=== PATIENT | female | born 1935 | race Caucasian/White ===

== ENCOUNTER 2017-05-21 09:00 | Inpatient (IN) ==
[2017-05-15 13:57] LABS: Appearance,Urine CLEAR; Bacteria,Urine 0 /hpf (0); Bilirubin,Urine NEG (NEG); Color,Urine STRAW; Glucose,Urine (UA) NEGATIVE (NEG); Leukocyte Esterase,Urine 75 /uL (NEG); Mucus,Urine FEW /hpf (0); Nitrate,Urine NEG (NEG); Protein,Urine NEG (NEG); Specific Gravity,Urine 1.005 (1.000-1.035); Urine Blood NEG mg/dL (<0.03); Urine RBC 2 /hpf (0-1); Urine Squamous Epithelial Cell 3 /hpf (0-4); Urine Transitional Epi Cells < 1 /hpf (0-2); Urine WBC 1 /hpf (0-4); Urobilinogen,Urine NEG (NEG)
[2017-05-15 14:00] LABS: Basophils # (Auto) 0 K/mcL (0.0-0.3); Basophils % (Auto) 0.2 % (0.0-2.0); Eosinophils # (Auto) 0.2 K/mcL (0.0-0.7); Eosinophils % (Auto) 3.3 % (0.0-7.0); Granulocytes % (Auto) 68.1 % (38.0-78.0); Lymphocytes # (Auto) 1.1 K/mcL (1.5-4.8); Lymphocytes % (Auto) 16.8 % (15.5-49.0); Mean Cell Volume 77.2 fL (80.0-100.0); Mean Corpuscular HGB Conc 32.4 g/dL (31.0-36.0); Monocytes # (Auto) 0.8 K/mcL (0.1-0.9); Monocytes % (Auto) 11.6 % (1.0-12.0); Platelet Count 220 K/mcL (140-440); RBC 4.34 M/mcL (4.00-5.20); Red Cell Distribution Width 16.5 % (11.5-14.5)
[2017-05-15 14:12] LABS: Blood Urea Nitrogen 14 mg/dl (8-23)
[2017-05-21] MEDS ORDERED: PREGABALIN 75 MG CAPSULE PO SCH (11:30)
[2017-05-21] MEDS ORDERED: ACETAMINOPHEN 500 MG TABLET PO SCH (11:30)
[2017-05-21] MEDS ORDERED: ceFAZolin 1 GM VIAL IV SCH (11:30)
[2017-05-21] MEDS ORDERED: oxyCODONE 10 MG TAB.ER.12H PO SCH (11:30)
[2017-05-21] MEDS ORDERED: KETOROLAC 30 MG, ROPIVACAINE HCL/PF 49.5 ML, EPINEPHrine 0.5 MG, 0.9 % SODIUM CHLORIDE ... IJ ONE (12:24)
[2017-05-21] MEDS ORDERED: LIDOCAINE HCL/PF 100 MG/5 ML SYRINGE IV ONE (12:34)
[2017-05-21] MEDS ORDERED: PROPOFOL 200 MG/20 ML VIAL IV ONE (12:34)
[2017-05-21] MEDS ORDERED: MIDAZOLAM 2 MG/2 ML VIAL ONE (12:34)
[2017-05-21] MEDS ORDERED: VERAPAMIL 2.5 MG/ML VIAL IV ONE (12:34)
[2017-05-21] MEDS ORDERED: KETAMINE 10 MG/ML ML ONE (12:34)
[2017-05-21] MEDS ORDERED: METOPROLOL TARTRATE 5 MG/5 ML VIAL IV ONE (12:34)
[2017-05-21] MEDS ORDERED: GLYCOPYRROLATE 0.2 MG/ML VIAL IV ONE (12:34)
[2017-05-21] MEDS ORDERED: ONDANSETRON 4 MG/2 ML VIAL ONE (12:34)
[2017-05-21] MEDS ORDERED: PHENYLEPHRINE 10 MG/ML VIAL ONE (12:34)
[2017-05-21] MEDS ORDERED: ONDANSETRON 4 MG/2 ML VIAL IV PRN ×2 (13:25→14:09)
[2017-05-21] MEDS ORDERED: BENZOCAINE/MENTHOL 1 LOZENGE PO PRN ×2 (13:25→14:09)
[2017-05-21] MEDS ORDERED: MEPERIDINE 25 MG/ML SYRINGE IV PRN (13:25)
[2017-05-21] MEDS ORDERED: METOPROLOL TARTRATE 5 MG/5 ML VIAL IV PRN (13:25)
[2017-05-21] MEDS ORDERED: METHOCARBAMOL 1,000 MG/10 ML VIAL IV PRN (13:25)
[2017-05-21] MEDS ORDERED: IPRATROPIUM/ALBUTEROL 3 ML AMPUL.NEB NEB PRN (13:25)
[2017-05-21] MEDS ORDERED: GENTAMICIN SULFATE 800 MG/20 ML VIAL IR ONE (13:29)
[2017-05-21] MEDS ORDERED: ACETAMINOPHEN 1,000 MG/100 ML BOTTLE IV SCH ×2 (13:30→18:00)
[2017-05-21] MEDS ORDERED: LACTATED RINGERS 1,000 ML IV SCH (13:30)
[2017-05-21] MEDS ORDERED: HYDROmorphone 2 MG/ML SYRINGE IV PRN (14:09)
[2017-05-21] MEDS ORDERED: POLYETHYLENE GLYCOL 3350 17 GM PACKET PO PRN (14:09)
[2017-05-21] MEDS ORDERED: TRANEXAMIC ACID 1,000 MG/10 ML VIAL IV SCH (14:09)
[2017-05-21] MEDS ORDERED: MAGNESIUM HYDROXIDE 30 ML ORAL.SUSP PO PRN (14:09)
[2017-05-21] MEDS ORDERED: BISACODYL 10 MG SUPP.RECT PR PRN (14:09)
[2017-05-21] MEDS ORDERED: ACETAMINOPHEN 325 MG TABLET PO PRN (14:09)
[2017-05-21] MEDS ORDERED: FLEETS ADULT ENEMA PR PRN (14:09)
[2017-05-21] MEDS ORDERED: OLOPATADINE 0.1% OPHTH DROPS 5ML BOTTLE OU PRN (14:18)
--- NOTE | 2017-05-21 14:20 | Brief Operative Note ---
Date of procedure: 05/21/17 Pre-op diagnosis: left knee djd Post-op diagnosis: same Procedure: left tka Grafts/Implants: Yes Anesthesia: GETA Complications: none Complications Description: 05/21/17 14:20 none Surgeon: Ramón Iverson Chief Psychologist: Luis M Goodwin Estimated blood loss (cc): 20 Tourniquet Time (Minutes): 45 Specimens Removed/Pathology: none sent Condition: stable Disposition: PACU
[2017-05-21] MEDS ORDERED: POLYVINYL ALCOHOL OPHTH DROPS 15ML BOTTLE OU PRN (14:38)
[2017-05-21] MEDS: fentaNYL 100 MCG/2 ML VIAL IV PRN ×3 (14:40→15:16)
--- NOTE | 2017-05-21 15:35 | Operative Note ---
DATE OF OPERATION: 05/21/2017 PREOPERATIVE DIAGNOSIS: Left knee degenerative arthritis, severe with valgus malalignment. POSTOPERATIVE DIAGNOSIS: Left knee degenerative arthritis, severe with valgus malalignment. PROCEDURE: Left total knee arthroplasty with a cemented total knee, cruciate retained design from [employer]. SURGEON: Ramón Iverson MD SPRINKLER HELPER: Luis M Goodwin PA-C ANESTHESIA: General LMA anesthesia. COMPLICATIONS: None. TOTAL TOURNIQUET TIME: Approximately 45 minutes. DESCRIPTION OF PROCEDURE: The patient was brought to the operating room and put to sleep with general LMA anesthesia. Once the timeout had been performed, we confirmed the operative site, and tranexamic acid had been given. The left leg was sterilely prepped and draped in the usual sterile fashion. Once we did this, we then made a midline incision, a mid vastus approach performed. Severe arthritis with valgus malalignment and a flexion contracture of about 9 degrees was noted with the robot. Two pins above and below the knee were placed, 30 pin spots on the femur and tibia were registered, two pins, one on the femur, one on the tibia were registered. We registered the center of hip rotation and registered the medial and lateral malleoli. We balanced the knee both in flexion and extension after removing osteophytes. Once thoroughly balanced and the alignment of the implants were perfectly aligned, we irrigated thoroughly and then made our distal femoral cut and posterior chamfer cut with the robot after registering the robot. We changed the blade and then we made our anterior, posterior and anterior chamfer cuts. Then, we registered tibia. The robot was reregistered and then we made our tibial cut. Once perfectly made, we then removed the osteophytes and spurs and posterior spurs, remnants of the meniscus were removed the remnants of the bony fragments were removed. We irrigated thoroughly and then punched into place the tibial baseplate, size 3 tibial base plate was placed and then we trialed the size 3 femur. A 9 mm poly seemed to be the most appropriate. The 11 was too tight in extension giving 4 degrees of flexion contracture. The 9 gave 2 degrees of flexion contracture and was balanced throughout. We irrigated thoroughly and performed a small release laterally to rebalance the knee. We cemented into place a size 3 tibial baseplate after using the CarboJet and thorough irrigation. Once the bone was completely dry, we cemented into place a tibial base plate from [employer] size 3. We prepared the femur the same way with pulse lavage and CarboJet. Once perfectly prepared, bone cement was placed on the anterior flange of the femur and then cemented into place the femur. Excess cement was removed, 9 mm poly placed. The knee was placed at 45 degrees and full extension. We prepared the patella. Its total thickness was about 17 to 18. We removed 5 mm of bone down to 13 mm total thickness to give us perfectly smooth surface and then placed a 33 mm patellar button. A small chamfer cut was made laterally. I then cemented into place all the above-mentioned sizes. Excess cement had been thoroughly removed. We kept the knee at 45 degrees until all components were dry and the cement was hardened. We irrigated thoroughly, deflated the tourniquet at 45 minutes, controlled any bleeders with the Bovie, and thoroughly irrigated the once the cement was dry. The knee was taken through range of motion and the patella tracked extremely well. All components fit nicely and equally balanced in all directions. We irrigated thoroughly and then closed the mid vastus approach with #1 StrataFix, two sutures were used, one proximal and one distal. Skin was closed with 2-0 Vicryl and adhesive closure. A sterile bandage was applied. The patient tolerated this well. The pins were removed from the bone as well as intra-articular pins and all counts were correct. Sterile bandage was applied. The patient left the operating room in good condition. RBH:joey Job ID: [id number] Doc ID: [id number] Ramón Iverson MD
--- NOTE | 2017-05-21 15:46 | XRay Report ---
CLINICAL INFORMATION: Post-Op Total Knee COMPARISON: None. FINDINGS: Total knee prostheses is anatomically aligned. There are no osseous abnormalities. Periarticular gas and soft tissue swelling seen as expected IMPRESSION: Normal Interpreted and Authenticated by: Kevin De LaG arza 05/21/17
[2017-05-21] MEDS: HYDROcodone/APAP 10/325MG TABLET PO PRN (16:02)
[2017-05-21] MEDS: 0.45 % SODIUM CHLORIDE 1,000 ML IV SCH (16:09)
[2017-05-21] MEDS: KETOROLAC 15 MG/ML VIAL IV SCH (18:22)
[2017-05-21] MEDS: ceFAZolin 1 GM VIAL IV SCH (20:18)
[2017-05-21] MEDS: SENNOSIDES 1 TABLET PO SCH (20:18)
[2017-05-21] MEDS: METOPROLOL SUCCINATE 25 MG TAB.XL.24H PO SCH (20:19)
[2017-05-21] MEDS: DOCUSATE SODIUM 100 MG CAPSULE PO SCH (20:19)
[2017-05-21] MEDS: amLODIPine 5 MG TABLET PO SCH (20:19)
[2017-05-21] MEDS: VIT A,C & E/LUTEIN/MINERALS TABLET PO SCH (20:19)
[2017-05-21] MEDS ORDERED: DOCUSATE SODIUM 100 MG CAPSULE PO SCH (21:00)
[2017-05-21] MEDS ORDERED: ASPIRIN 325 MG ENTERIC COATED TABLET PO SCH (21:00)
[2017-05-21] MEDS ORDERED: TEMAZEPAM 15 MG CAPSULE PO PRN (21:00)
[2017-05-21] MEDS: WARFARIN 4 MG TABLET PO SCH (22:41)
[2017-05-21] MEDS: 0.9 % SODIUM CHLORIDE 10 ML SYRINGE IV SCH (22:41)
[2017-05-21] MEDS: TIMOLOL 0.5% OPHTH DROPS BOTTLE 5ML OU SCH (22:42)
[2017-05-21] MEDS ORDERED: WARFARIN 4 MG TABLET PO ONE (22:44)
[2017-05-22] MEDS: HYDROcodone/APAP 10/325MG TABLET PO PRN ×3 (00:40→21:09)
[2017-05-22] MEDS: KETOROLAC 15 MG/ML VIAL IV SCH ×5 (00:40→23:43)
[2017-05-22] MEDS: 0.45 % SODIUM CHLORIDE 1,000 ML IV SCH ×3 (02:48→20:46)
[2017-05-22] MEDS: ceFAZolin 1 GM VIAL IV SCH (04:22)
[2017-05-22] MEDS: 0.9 % SODIUM CHLORIDE 10 ML SYRINGE IV SCH ×5 (05:10→23:47)
--- NOTE | 2017-05-22 07:33 | Orthopedic Progress Note ---
Subjective Patient information: Note initiated : 05/22/17 at 7:32 am Service Date, if different from initiated Date: [] Patient: Nadine Shah 81 y/o F admitted on 05/21/17 for Left Total Knee Arthroplasty - Blane. Chief Complaint: [Pt is stable this morning on post operative day 1 without any significant concerns or complaints. Patients vital signs have remained stable. Patients dressing is dry and exhibits a grossly intact neurovascular and neuromotor exam. Patients 10 point ROS is otherwise negative. ] Objective Vital signs: Vital Signs Temp Pulse Resp BP BP Pulse Ox 05/22/17 07:28 97.4 F 69 14 132/79 96 05/22/17 04:00 98.0 F 80 14 118/62 96 05/22/17 00:45 97 05/22/17 00:42 87 L 05/21/17 23:03 97.4 F 71 16 118/68 99 05/21/17 22:00 99 05/21/17 18:20 97.4 F 73 18 182/73 96 05/21/17 17:20 157/77 95 05/21/17 16:42 151/79 99 05/21/17 16:25 159/86 99 05/21/17 16:10 167/82 99 05/21/17 15:55 167/96 99 05/21/17 15:40 96.2 F L 12 151/75 98 05/21/17 15:30 98.9 F 81 20 142/75 97 05/21/17 15:00 83 20 137/59 96 05/21/17 14:50 93 H 18 149/63 100 05/21/17 14:40 92 H 16 154/86 100 05/21/17 14:28 99.3 F H 94 H 10 L 121/78 97 05/21/17 11:57 97.4 F 16 159/86 97 05/21/17 09:38 96.9 F L 18 177/95 98 Intake and Output 05/21/17 05/22/17 05/22/17 21:59 05:59 13:59 Intake Total 2140 / 2140 1187 / 1187 Output Total 476 / 476 700 / 700 Balance 1664 / 1664 487 / 487 Intake: IV 1900 / 1900 1187 / 1187 Sodium Chloride 0.45% 1, 1187 / 1187 000 ml @ 100 mls/hr IV . Q10H MAGGIE Rx#:[id number] Oral 240 / 240 Output: Void Amount 476 / 476 700 / 700 Other: Meal Dinner Percent of Meal Consumed 75% Feeding Ability Independent Weight 149 lb 8 oz Intake & Output: Intake & Output 05/21/17 05/22/17 05/22/17 21:59 05:59 13:59 Intake Total 2140 / 2140 1187 / 1187 Output Total 476 / 476 700 / 700 Balance 1664 / 1664 487 / 487 Weight 149 lb 8 oz Intake: IV 1900 / 1900 1187 / 1187 Sodium Chloride 0.45% 1, 1187 / 1187 000 ml @ 100 mls/hr IV . Q10H MAGGIE Rx#:[id number] Oral 240 / 240 Output: Void Amount 476 / 476 700 / 700 Other: Meal Dinner Percent of Meal Consumed 75% Feeding Ability Independent Incision: Yes healing Incision clean and dry: Yes Dressing: Yes clean Weight bearing status: full Neurological exam IM: Yes motor sensory intact, Yes neurovascular intact Extremities exam IM: Yes Foot pink and warm, Yes neurovascular intact - Labs CBC & BMP: 05/22/17 05:09 05/15/17 12:21 Labs: Orthopedic Labs 05/22/17 05/21/17 05/15/17 05:09 09:54 12:21 PT 24.5 H 21.5 H 20.5 H INR 2.1 H 1.8 H 1.7 H APTT 35 05/22/17 05/15/17 05:09 12:21 Hgb 10.9 L Hct 29.3 L 33.5 L Assessment and Plan (1) Hx of total knee arthroplasty Patient has been educated regarding wound care and dressings, follow up recommendations, and medication use. We will f/u with the patient within 2-3 weeks for wound check. Status: Acute
--- NOTE | 2017-05-22 07:36 | Discharge Summary ---
Ortho Discharge - TKA - Patient Instructions Diet: Regular Diet Activity: activity as tolerated, weight bearing as tolerated Total Knee Protocol: For Total Knee: Start ROM GRACIELA with stationary bike or rocking chair. Work on gaining full extension of knee. Posterior dislocation precautions provided. Hip abductor strengthening and gait training instructions provided. Apply Cryocuff as instructed. Dressing Care: May shower in 2 days - Problem Maintenance (1) Hx of total knee arthroplasty Status: Acute - Follow Up Plan Follow Up Appointments: Ramón Iverson MD [Physician] - 06/07/17 3:00 pm Disposition: Home, Self-Care Prognosis: Good Rehab Potential: Good I certify that the patient requires SNF services: No Overall status at discharge: patient is progressing back to baseline - Orders For Discharge Prescriptions: Docusate Sodium [Colace] 100 mg PO BID #60 capsule HYDROcodone/APAP 10/325MG [[place] 10/325Mg] 1 - 2 tab PO Q4HP PRN #75 tablet PRN Reason: Pain
[2017-05-22] MEDS: LEVOTHYROXINE 25 MCG TABLET PO SCH (07:42)
[2017-05-22] MEDS: OMEPRAZOLE 20 MG CAPSULE PO SCH (07:42)
--- NOTE | 2017-05-22 07:52 | Discharge Summary ---
Ortho Discharge - TKA - Patient Instructions Diet: Regular Diet Activity: activity as tolerated, weight bearing as tolerated Total Knee Protocol: For Total Knee: Start ROM GRACIELA with stationary bike or rocking chair. Work on gaining full extension of knee. Posterior dislocation precautions provided. Hip abductor strengthening and gait training instructions provided. Apply Cryocuff as instructed. Dressing Care: May shower in 2 days Patient Education: Total Knee Replacement (DC) Additional Instructions: Discharge Instructions: Do the exercises at home that physical therapy gave you. Take your prescription, photo ID, insurance cards, and current medication list with you to your first physical therapy appointment. Take your prescription to hot die picker any medication or equipment (such as walker, crutches, toilet riser or C.P.M.) Wear comfortable clothing for your physical therapy. Weight bearing as tolerated. You have Dermabond (a dressing with a mesh-like appearance), leave open to air. You may start showering on post op day #2. The Dermabond dressing can get wet, do not scrub dressing. Pat dry. To avoid constipation while taking any narcotic pain medication, take an over the counter stool softener/laxative. Use your Cryocuff or ice packs as directed, on for 20 minutes at a time throughout the day. This and elevation will help with pain and swelling. Call your physician for fevers above 100.5 or pain not controlled by medication. Your prescriptions are with your discharge information. Some medications were electronically transmitted to your pharmacy of choice. - Problem Maintenance (1) Hx of total knee arthroplasty Status: Acute - Follow Up Plan Follow Up Appointments: Ramón Iverson MD [Physician] - 06/07/17 3:00 pm Disposition: Home, Self-Care Prognosis: Good Rehab Potential: Good I certify that the patient requires SNF services: Yes Overall status at discharge: patient is progressing back to baseline - Orders For Discharge Prescriptions: Docusate Sodium [Colace] 100 mg PO BID #60 capsule HYDROcodone/APAP 10/325MG [[place] 10/325Mg] 1 - 2 tab PO Q4HP PRN #75 tablet PRN Reason: Pain Additional Discharge Orders: Physical Therapy at Discharge - TKA Location: Determined By Patient CPM Discharge Order Location: Determined By Patient Toilet Riser Discharge Order Location: Determined By Patient Walker Location: Determined By Patient
[2017-05-22] MEDS: HYDROcodone/APAP 5/325MG TABLET PO PRN ×4 (08:23→13:42)
[2017-05-22] MEDS ORDERED: FLU VACC QS2017-18 36MOS UP/PF 60 MCG/0.5 ML SYRINGE IM ONE (09:00)
[2017-05-22] MEDS: VIT A,C & E/LUTEIN/MINERALS TABLET PO SCH ×2 (09:38→20:35)
[2017-05-22] MEDS: SIMVASTATIN 20 MG TABLET PO SCH (09:39)
[2017-05-22] MEDS: DOCUSATE SODIUM 100 MG CAPSULE PO SCH ×2 (09:40→20:40)
[2017-05-22] MEDS: TIMOLOL 0.5% OPHTH DROPS BOTTLE 5ML OU SCH ×2 (10:33→21:09)
[2017-05-22] MEDS: WARFARIN 4 MG TABLET PO SCH (13:40)
[2017-05-22] MEDS: SENNOSIDES 1 TABLET PO SCH (20:35)
[2017-05-22] MEDS: amLODIPine 5 MG TABLET PO SCH (20:36)
[2017-05-22] MEDS: METOPROLOL SUCCINATE 25 MG TAB.XL.24H PO SCH (20:39)
[2017-05-23] MEDS: HYDROcodone/APAP 10/325MG TABLET PO PRN ×5 (01:36→20:04)
[2017-05-23] MEDS: KETOROLAC 15 MG/ML VIAL IV SCH ×2 (05:11→12:14)
[2017-05-23] MEDS: 0.9 % SODIUM CHLORIDE 10 ML SYRINGE IV SCH ×3 (05:11→20:05)
[2017-05-23] MEDS: 0.45 % SODIUM CHLORIDE 1,000 ML IV SCH ×2 (06:32→16:35)
[2017-05-23] MEDS: OMEPRAZOLE 20 MG CAPSULE PO SCH (07:04)
[2017-05-23] MEDS: LEVOTHYROXINE 25 MCG TABLET PO SCH (07:05)
--- NOTE | 2017-05-23 07:07 | Orthopedic Progress Note ---
Subjective Patient information: Note initiated : 05/23/17 at 7:06 am Service Date, if different from initiated Date: [] Patient: Nadine Shah 81 y/o F admitted on 05/21/17 for Left Total Knee Arthroplasty - Blane. Chief Complaint: [c/c of restless leg and fells like she may fall at times] Objective Vital signs: Vital Signs Temp Pulse Resp BP Pulse Ox 05/23/17 04:00 98.3 F 70 18 126/70 95 05/22/17 23:29 98.5 F 70 20 133/77 98 05/22/17 23:28 98 05/22/17 19:55 97 05/22/17 19:54 98.2 F 71 20 125/63 97 05/22/17 16:00 97.1 F 72 14 118/68 99 05/22/17 12:00 98 05/22/17 11:47 98.6 F 63 16 112/45 98 05/22/17 07:56 96 05/22/17 07:28 97.4 F 69 14 132/79 96 Intake and Output 05/22/17 05/23/17 05/23/17 21:59 05:59 13:59 Intake Total 830 / 830 100 / 100 Output Total 625 / 625 300 / 300 Balance 205 / 205 -200 / -200 Intake: Oral 830 / 830 100 / 100 Output: Void Amount 625 / 625 300 / 300 Other: Meal Dinner Percent of Meal Consumed 100% Feeding Ability Assist with Tray Set Up # Voids 1 Weight 149 lb 8 oz Intake & Output: Intake & Output 05/22/17 05/23/17 05/23/17 21:59 05:59 13:59 Intake Total 830 / 830 100 / 100 Output Total 625 / 625 300 / 300 Balance 205 / 205 -200 / -200 Weight 149 lb 8 oz Intake: Oral 830 / 830 100 / 100 Output: Void Amount 625 / 625 300 / 300 Other: Meal Dinner Percent of Meal Consumed 100% Feeding Ability Assist with Tray Set Up # Voids 1 Incision: Yes healing Incision clean and dry: Yes Dressing: Yes clean Weight bearing status: full Neurological exam IM: Yes oriented X3, Yes neurovascular intact Extremities exam IM: Yes Foot pink and warm, Yes neurovascular intact - Labs CBC & BMP: 05/22/17 05:09 05/15/17 12:21 Labs: Orthopedic Labs 05/23/17 05/22/17 05/21/17 05:00 05:09 09:54 PT 36.3 H 24.5 H 21.5 H INR 3.5 H 2.1 H 1.8 H APTT 05/15/17 12:21 PT 20.5 H INR 1.7 H APTT 35 05/22/17 05/15/17 05:09 12:21 Hgb 10.9 L Hct 29.3 L 33.5 L
[2017-05-23] MEDS: DOCUSATE SODIUM 100 MG CAPSULE PO SCH ×2 (09:17→20:05)
[2017-05-23] MEDS: VIT A,C & E/LUTEIN/MINERALS TABLET PO SCH ×2 (09:19→20:04)
[2017-05-23] MEDS: SIMVASTATIN 20 MG TABLET PO SCH (09:19)
[2017-05-23] MEDS: TIMOLOL 0.5% OPHTH DROPS BOTTLE 5ML OU SCH ×2 (09:57→21:53)
[2017-05-23] MEDS: WARFARIN 4 MG TABLET PO SCH (13:44)
--- NOTE | 2017-05-23 15:33 | Discharge Summary ---
Ortho Discharge - TKA - Patient Instructions Diet: Regular Diet Activity: activity as tolerated, weight bearing as tolerated Total Knee Protocol: For Total Knee: Start ROM GRACIELA with stationary bike or rocking chair. Work on gaining full extension of knee. Posterior dislocation precautions provided. Hip abductor strengthening and gait training instructions provided. Apply Cryocuff as instructed. Dressing Care: May shower in 2 days Patient Education: Hydrocodone/Acetaminophen (By mouth), Laxative, Stool Softeners (By mouth), Total Knee Replacement (DC) Additional Instructions: Discharge Instructions: Do the exercises at home that physical therapy gave you.Wear comfortable clothing for your physical therapy. Take your prescription, photo ID, insurance cards, and current medication list with you to your first physical therapy appointment. Take your prescription to machine operator picker any medication or equipment (such as walker, crutches, toilet riser or C.P.M.) Weight bearing as tolerated. You have Dermabond (a dressing with a mesh-like appearance), leave open to air. You may start showering on post op day #2. The Dermabond dressing can get wet, do not scrub dressing. Pat dry. To avoid constipation while taking any narcotic pain medication, take an over the counter stool softener/laxative. Use your Cryocuff or ice packs as directed, on for 20 minutes at a time throughout the day. This and elevation will help with pain and swelling. Call your physician for fevers above 100.5 or pain not controlled by medication. Your prescriptions are with your discharge information. Some medications were electronically transmitted to your pharmacy of choice. - Follow Up Plan Follow Up Appointments: Ramón Iverson MD [Physician] - 06/07/17 3:00 pm Disposition: Xfer SNF Prognosis: Good Rehab Potential: Good I certify that the patient requires SNF services: Yes - Orders For Discharge Prescriptions: Docusate Sodium [Colace] 100 mg PO BID #60 capsule HYDROcodone/APAP 10/325MG [[place] 10/325Mg] 1 - 2 tab PO Q4HP PRN #75 tablet PRN Reason: Pain rOPINIRole HCL [Requip] 1 mg PO HS #30 tablet Additional Discharge Orders: Physical Therapy at Discharge - TKA Location: Determined By Patient CPM Discharge Order Location: Determined By Patient Toilet Riser Discharge Order Location: Determined By Patient Walker Location: Determined By Patient
--- NOTE | 2017-05-23 15:43 | Discharge Summary ---
Ortho Discharge - TKA - Patient Instructions Diet: Regular Diet Activity: activity as tolerated, weight bearing as tolerated Total Knee Protocol: For Total Knee: Start ROM GRACIELA with stationary bike or rocking chair. Work on gaining full extension of knee. Posterior dislocation precautions provided. Hip abductor strengthening and gait training instructions provided. Apply Cryocuff as instructed. Dressing Care: May shower in 2 days Patient Education: Hydrocodone/Acetaminophen (By mouth), Laxative, Stool Softeners (By mouth), Total Knee Replacement (DC) Additional Instructions: Discharge Instructions: Do the exercises at home that physical therapy gave you.Wear comfortable clothing for your physical therapy. Take your prescription, photo ID, insurance cards, and current medication list with you to your first physical therapy appointment. Take your prescription to pick up attendant any medication or equipment (such as walker, crutches, toilet riser or C.P.M.) Weight bearing as tolerated. You have Dermabond (a dressing with a mesh-like appearance), leave open to air. You may start showering on post op day #2. The Dermabond dressing can get wet, do not scrub dressing. Pat dry. To avoid constipation while taking any narcotic pain medication, take an over the counter stool softener/laxative. Use your Cryocuff or ice packs as directed, on for 20 minutes at a time throughout the day. This and elevation will help with pain and swelling. Call your physician for fevers above 100.5 or pain not controlled by medication. Your prescriptions are with your discharge information. Some medications were electronically transmitted to your pharmacy of choice. - Follow Up Plan Follow Up Appointments: Ramón Iverson MD [Physician] - 06/07/17 3:00 pm Disposition: Xfer SNF Prognosis: Good Rehab Potential: Good I certify that the patient requires SNF services: Yes Overall status at discharge: patient is progressing back to baseline - Orders For Discharge Prescriptions: Docusate Sodium [Colace] 100 mg PO BID #60 capsule HYDROcodone/APAP 10/325MG [[place] 10/325Mg] 1 - 2 tab PO Q4HP PRN #75 tablet PRN Reason: Pain rOPINIRole HCL [Requip] 1 mg PO HS #30 tablet Warfarin [Coumadin] 2 mg PO DAILY #30 tablet Additional Discharge Orders: Physical Therapy at Discharge - TKA Location: Determined By Patient Physical Therapy at Discharge - TKA Location: Determined By Patient CPM Discharge Order Location: Determined By Patient Toilet Riser Discharge Order Location: Determined By Patient Walker Location: Determined By Patient Walker Location: Determined By Patient
[2017-05-23] MEDS: SENNOSIDES 1 TABLET PO SCH (20:04)
[2017-05-23] MEDS: METOPROLOL SUCCINATE 25 MG TAB.XL.24H PO SCH (20:04)
[2017-05-23] MEDS ORDERED: rOPINIRole 1 MG TABLET PO SCH (21:00)
[2017-05-23] MEDS: amLODIPine 5 MG TABLET PO SCH (21:51)
[2017-05-24] MEDS: 0.45 % SODIUM CHLORIDE 1,000 ML IV SCH (02:20)
[2017-05-24] MEDS: OMEPRAZOLE 20 MG CAPSULE PO SCH (06:41)
[2017-05-24] MEDS: 0.9 % SODIUM CHLORIDE 10 ML SYRINGE IV SCH ×2 (06:41→13:46)
[2017-05-24] MEDS: LEVOTHYROXINE 25 MCG TABLET PO SCH (06:41)
[2017-05-24] MEDS: DOCUSATE SODIUM 100 MG CAPSULE PO SCH (10:18)
[2017-05-24] MEDS: VIT A,C & E/LUTEIN/MINERALS TABLET PO SCH (10:18)
[2017-05-24] MEDS: SIMVASTATIN 20 MG TABLET PO SCH (10:18)
[2017-05-24] MEDS: TIMOLOL 0.5% OPHTH DROPS BOTTLE 5ML OU SCH (10:20)
[2017-05-24] MEDS: HYDROcodone/APAP 10/325MG TABLET PO PRN ×2 (10:23→14:21)
[2017-05-24] MEDS ORDERED: WARFARIN 2 MG TABLET PO ONE (14:00)
== END 2017-05-24 15:20 | DRG 470 ==
LOC: MEDSUR 09:00
PROVIDERS: ADMIT Orthopaedic Surgery; ATTEND Orthopaedic Surgery